=== PATIENT | female | born 1990 | race Caucasian/White ===

== ENCOUNTER 2019-08-01 08:25 | Inpatient (IN) | payer MEDICAID ==
[~2019-08-01] VITALS: Ht 157.5 cm; Wt 104.3 kg
[~2019-08-01 08:25] MED LIST: [UNRECOGNIZED DRUG - CODE] PO
[2019-08-01] MEDS ORDERED: LACTATED RINGERS 1,000 ML IV SCH (09:50)
[2019-08-01] MEDS ORDERED: LEVO0.2T5 PO (09:57)
[2019-08-01 10:30] LABS: APPEARANCE,URINE HAZY (CLEAR); BILIRUBIN,URINE NEGATIVE (NEGATIVE); BLOOD, URINE 2+ (NEGATIVE); COLOR,URINE YELLOW (YELLOW); LEUKOCYTE ESTERASE ,URINE 2+ (NEGATIVE); NITRITE, URINE NEGATIVE (NEGATIVE); UGLUCOSE NEGATIVE (NEGATIVE)
[2019-08-01 10:43] LABS: BASOPHILS % (AUTO) 0.3 % (0.0-2.0); EOSINOPHILS # (AUTO) 0.1 K/uL (0-0.4); EOSINOPHILS % (AUTO) 0.6 % (0.0-4.0); HEMATOCRIT 35.5 % (36-48); HEMOGLOBIN 12.5 g/dL (12.0-16.0); LYMPHOCYTES # (AUTO) 2.3 K/uL (2.5-16.5); LYMPHOCYTES % (AUTO) 21.7 % (20.5-51.1); MEAN CORPUSCULAR HEMOGLOBIN 31 pg (27-31); MEAN CORPUSCULAR HGB CONC 35 g/dL (33-37); MONOCYTES # (AUTO) 0.6 K/uL (0.8-1.0); MONOCYTES % (AUTO) 5.4 % (1.7-9.3); NEUTROPHILS # (AUTO) 7.7 K/uL (1.8-7.7); PLATELET COUNT (AUTO) 259 K/uL (140-450); RED BLOOD CELL COUNT(AUTO) 4.04 MIL/uL (4.20-5.40); RED CELL DISTRIBUTION WIDTH 13.9 % (11.6-13.7); WHITE BLOOD COUNT (AUTO) 10.6 K/uL (4.8-10.8)
[2019-08-01 10:52] LABS: RBC,URINE 0-5 /HPF (0-5); WBC,URINE 16-25 (MOD) /HPF (0-5)
[2019-08-01 11:07] LABS: ALBUMIN 2.8 g/dL (3.4-5.0); ANION GAP 13.5 (8-16); CREATININE 0.7 mg/dL (0.6-1.3); POTASSIUM 4.5 mmol/L (3.5-5.1); TOTAL BILIRUBIN 0.3 mg/dL (0.0-1.0)
[2019-08-01 14:07] VITALS: BP 113/60
[2019-08-01] MEDS ORDERED: OXYTOCIN 20 UNITS/LR PREMIX 1,000 ML IV SCH (16:30)
[2019-08-01] MEDS ORDERED: OXYTOCIN 20 UNITS/LR PREMIX 1,000 ML IV ONE (16:35)
[2019-08-01] MEDS ORDERED: EPIDURAL KEYS MC ONE (18:28)
[2019-08-01] MEDS ORDERED: ROPIVACAINE 0.2%/NS PREMIX 0 ML EPI ONE (18:41)
[2019-08-01] MEDS ORDERED: fentaNYL 0.05 MG/ML VIAL ONE (19:35)
[2019-08-01] MEDS: fentaNYL 0.05 MG/ML VIAL IVP PRN (19:41)
[2019-08-01] MEDS ORDERED: AMPICILLIN 2,000 MG VIAL ONE (19:58)
[2019-08-01] MEDS ORDERED: AMPICILLIN 2,000 MG in NACL 0.9% 100 ML IV ONE (20:00)
[2019-08-02] MEDS: fentaNYL 0.05 MG/ML VIAL IVP PRN (01:44)
[2019-08-02] MEDS ORDERED: LIDOCAINE 1% 500 MG/50 ML VIAL ONE (02:38)
[2019-08-02] MEDS ORDERED: AMPICILLIN 1,000 MG VIAL ONE (02:44)
[2019-08-02] MEDS ORDERED: AMPICILLIN 1,000 MG in NACL 0.9% 50 ML IV SCH ×4 (03:00→07:00)
[2019-08-02] MEDS ORDERED: IBUPROFEN 600 MG TAB PO PRN (03:15)
[2019-08-02] MEDS ORDERED: BENZOCAINE/MENTHOL 20%-0.5% 60 GM CAN TP PRN (03:15)
[2019-08-02] MEDS ORDERED: METHYLERGONOVINE 0.2 MG/ML AMP IM PRN (03:15)
[2019-08-02] MEDS ORDERED: MEASLES, MUMPS, AND RUBELLA 1 VIAL SQVAC PRN (03:15)
[2019-08-02] MEDS ORDERED: METHYLERGONOVINE 0.2 MG TAB PO PRN (03:15)
[2019-08-02] MEDS ORDERED: OXYTOCIN 10 UNITS/ML VIAL IM PRN (03:15)
[2019-08-02] MEDS ORDERED: BISACODYL 5 MG TABEC PO PRN (03:15)
--- NOTE | 2019-08-02 08:52 | NUR ---
PATIENT HAS BEEN SCREENED AND CATEGORIZED LOW NUTRITION RISK. PATIENT WILL BE SEEN WITHIN 7 DAYS OF ADMISSION. 08/07/[address]
[2019-08-03] MEDS: IBUPROFEN 800 MG TAB PO PRN ×2 (04:13→16:05)
[2019-08-03 08:28] LABS: HEMATOCRIT 32.9 % (36-48); HEMOGLOBIN 11.4 g/dL (12.0-16.0)
[2019-08-04] MEDS: IBUPROFEN 800 MG TAB PO PRN (07:55)
== END 2019-08-04 11:25 | disposition home or self-care (01) | DRG 560 ==
LOC: MLD 08:25 → OBSVTOIN 19:47 → MFCC 21:20 → MLD 21:56 → MFCC 08-02 05:55
PROVIDERS: ADMIT Obstetrics & Gynecology; ATTEND Obstetrics & Gynecology
PROC: 3E033VJ Introduction of Other Hormone into Peripheral Vein, Percutaneous Approach (ICD-10-PCS; principal; 2019-08-02)
PROC: 10E0XZZ Delivery of Products of Conception, External Approach (ICD-10-PCS; 2019-08-02)
PROC: 3E0234Z Introduction of Serum, Toxoid and Vaccine into Muscle, Percutaneous Approach (ICD-10-PCS; 2019-08-02)
DX: O70.0 First degree perineal laceration during delivery (principal); D62 Acute posthemorrhagic anemia; Z23 Encounter for immunization; Z37.0 Single live birth; Z3A.37 37 weeks gestation of pregnancy
CPT/HCPCS: G0378 ×11; 36415; 59409; 76805; 76819; 80053; 81001; 85018; 85025; 86592; 86886; 86900; 86901; 87086; 87653-90; 90715; J0290; J2001; J2590; J2795; J3010; J7120; Q0092